=== PATIENT | male | born 1935 | race Caucasian/White ===

== ENCOUNTER → 2017-09-30 09:18 | Outpatient (CLI) | payer MEDICARE, OTHER, SELFPAY ==
[2017-09-30 10:55] LABS: AST(SGOT) 40 U/L (15-37); Alanine Aminotransfer ALT/SGPT 40 U/L (16-61); Albumin, Serum 4.1 g/dL (3.2-5.0); Alkaline Phosphatase 56 U/L (45-117); Bilirubin, Direct 0.25 mg/dL (0.00-0.30); Cholesterol 163 mg/dL (200); Globulin 3.5 g/dL (2.2-4.2); High Density Lipoprotein 49 mg/dL; Protein, Total 7.6 g/dL (6.4-8.2); Triglycerides 67 mg/dL; Very Low Density Lipoprotein 13 mg/dL (5-40)
== END ==
PROVIDERS: Family Provider Internal Medicine; PCP Internal Medicine; Visit Provider Internal Medicine Cardiovascular Disease
DX: E78.5 Hyperlipidemia, unspecified (principal); I10 Essential (primary) hypertension; I71.2 Thoracic aortic aneurysm, without rupture; I50.32 Chronic diastolic (congestive) heart failure
CPT/HCPCS: 36415; 80061; 80076

== ENCOUNTER → 2017-10-15 12:24 | Outpatient (CLI) | payer MEDICARE, OTHER, SELFPAY ==
--- NOTE | 2017-10-15 12:28 | ECHOD_ITS ---
Version 2 Reason For Study: AFIB-FLUTTER Procedure This was a 2D Doppler, Color Flow transthoracic echocardiogram. Exam performed in department. Left Ventricle Normal size and thickness. The estimated ejection fraction is 65 %. No regional wall motion abnormalities noted. Right Ventricle Normal size and thickness. Normal systolic function. Atria Normal left atrium. Normal right atrium. Normal atrial septum. Mitral Valve Mild diffuse mitral valve thickening. Mild (1+) mitral valve insufficiency. Tricuspid Valve Normal tricuspid valve. Mild (1+) tricuspid valve insufficiency. Right ventricular systolic pressure estimated to be 40 mmHg. Mild pulmonary hypertension. Aortic Valve Trisinus/trileaflet aortic valve. Mild diffuse aortic valve thickening. Trivial aortic valve insufficiency. Pulmonic Valve Normal pulmonic valve. Great Vessels Normal aortic root. Mild atherosclerosis of the aortic arch. Normal inferior vena cava. Inferior vena cava collapse with sniff. Pericardium/Pleural No pericardial effusion. Medication 22 gauge I.V. with prn adaptor inserted into right arm. Performed a rapid injection of agitated mix of 9 cc saline and 1cc air to assess for atrial septal defect. BUBBLE STUDY ATTEMPTED TWICE, IV BLEW BOTH TIMES. MMode/2D Measurements & Calculations LVIDd: 4.7 cm IVSd: 1.2 cm Ao root diam: 4.0 cm LVIDs: 2.9 cm LVPWd: 1.1 cm RVDd: 3.1 cm FS: 38.2 % LAV(MOD-bp): 63.2 ml EDV(MOD-sp4): 74.1 ml SV(MOD-sp4): 50.6 ml LAV(MOD-bp) Indexed: 31.9 ml/m2 ESV(MOD-sp4): 23.5 ml LAV(MOD-sp2): 83.6 ml EF(MOD-sp4): 68.3 % LAV(MOD-sp4): 41.9 ml LA A4 area: 16.6 cm2 RA A4 area: 13.5 cm2 Doppler Measurements & Calculations MV E max french: 82.3 cm/sec Ao V2 max: 102.0 cm/sec AI max french: 417.1 cm/sec Ao max P.2 mmHg AI max P.8 mmHg AI dec slope: 165.6 cm/sec2 AI P1/2t: 737.9 msec LV V1 max: 91.1 cm/sec PA V2 max: 71.0 cm/sec TR max french: 246.2 cm/sec LV V1 max P.3 mmHg TR max P.3 mmHg Interpretation Summary The estimated ejection fraction is 65 %. Mild (1+) mitral valve insufficiency. Mild (1+) tricuspid valve insufficiency. Right ventricular systolic pressure estimated to be 40 mmHg. Mild pulmonary hypertension. Trivial aortic valve insufficiency. Compared to echo report dated 09/22/2006, LV function has remained the same. Pt now has mild pulmonary HTN. Aortic insufficiency appears about the same. Pt appears to be in atrial fibrillation. Aortic root diameter has improved from 4.6 to 4.0 cm. Ordering Physician: Celso Lane Referring Physician: GISSELL MCFARLANE Performed By: Margoth Gorman RDCS
== END ==
PROVIDERS: Family Provider Internal Medicine; PCP Internal Medicine; Visit Provider Internal Medicine Cardiovascular Disease
DX: I50.32 Chronic diastolic (congestive) heart failure (principal); I48.1 Persistent atrial fibrillation; I71.2 Thoracic aortic aneurysm, without rupture; I10 Essential (primary) hypertension
CPT/HCPCS: 93306; A4216

== ENCOUNTER → 2018-10-13 10:06 | Outpatient (CLI) | payer MEDICARE, OTHER, SELFPAY ==
[2018-10-03 13:06] VITALS: BMI 25.1
[2018-10-13 11:03] LABS: AST(SGOT) 42 U/L (15-37); Alanine Aminotransfer ALT/SGPT 52 U/L (16-61); Alkaline Phosphatase 57 U/L (45-117); Bilirubin, Direct 0.19 mg/dL (0.00-0.30); Cholesterol 149 mg/dL (200); Globulin 3.2 g/dL (2.2-4.2); High Density Lipoprotein 41 mg/dL; Protein, Total 7.2 g/dL (6.4-8.2); Triglycerides 82 mg/dL; Very Low Density Lipoprotein 16 mg/dL (5-40)
== END ==
PROVIDERS: Family Provider Internal Medicine; PCP Internal Medicine; Referring Provider Internal Medicine Cardiovascular Disease; Visit Provider Internal Medicine Cardiovascular Disease
DX: E78.5 Hyperlipidemia, unspecified (principal)
CPT/HCPCS: 36415; 80061; 80076

== ENCOUNTER → 2018-10-25 12:31 | Outpatient (CLI) | payer MEDICARE, OTHER, SELFPAY ==
[2018-10-03 13:06] VITALS: BMI 25.1
--- NOTE | 2018-10-25 12:33 | ECHOD_ITS ---
Reason For Study: Other, Ao Root Diameter Procedure This was a 2D Doppler, Color Flow transthoracic echocardiogram. Exam performed in department. Left Ventricle Normal size and thickness. Mildly dilated left ventricle. The estimated ejection fraction is 65 %. Unable to assess diastolic dysfunction due to arrhythmia. No regional wall motion abnormalities noted. Right Ventricle Mildly dilated right ventricle. Normal systolic function. Atria The left atrium is mildly enlarged. The right atrium is moderately enlarged. Normal atrial septum. Mitral Valve The mitral valve is structurally normal. No prolapse or stenosis seen. Trivial mitral valve insufficiency. Tricuspid Valve Normal tricuspid valve. Trivial tricuspid valve insufficiency. Right ventricular systolic pressure estimated to be 43 mmHg. Aortic Valve Trisinus/trileaflet aortic valve. Mild focal aortic valve thickening. Mild (1+) aortic valve insufficiency. Pulmonic Valve Normal pulmonic valve. Great Vessels Mildly dilated aortic root. Normal arch. Normal inferior vena cava. Inferior vena cava collapse with sniff. Pericardium/Pleural No pericardial effusion. MMode/2D Measurements & Calculations LVIDd: 5.0 cm IVSd: 1.2 cm Ao root diam: 4.7 cm LVIDs: 3.4 cm LVPWd: 1.2 cm RVDd: 4.4 cm FS: 32.9 % LAV(MOD-bp): 65.9 ml LVAd ap4: 27.1 cm2 SV(MOD-sp4): 44.0 ml LAV(MOD-bp) Indexed: 33.8 ml/m2 EDV(MOD-sp4): 75.3 ml LAV(MOD-sp2): 60.7 ml EDV(sp4-el): 77.4 ml LAV(MOD-sp4): 59.5 ml LVAs ap4: 16.0 cm2 ESV(MOD-sp4): 31.3 ml ESV(sp4-el): 30.6 ml EF(MOD-sp4): 58.5 % EF(sp4-el): 60.4 % SV(sp4-el): 46.8 ml LA A4 area: 20.8 cm2 LA dimension(2D): 4.1 cm RA A4 area: 24.7 cm2 Doppler Measurements & Calculations MV E max french: 73.4 cm/sec Ao V2 max: 105.9 cm/sec AI max french: 432.1 cm/sec Ao max P.5 mmHg AI max P.7 mmHg Ao V2 mean: 71.5 cm/sec Ao mean P.3 mmHg AI dec slope: 189.1 cm/sec2 Ao V2 VTI: 21.7 cm AI P1/2t: 669.2 msec LV V1 max: 89.1 cm/sec PA V2 max: 64.3 cm/sec TR max french: 265.8 cm/sec LV V1 max P.2 mmHg TR max P.3 mmHg Interpretation Summary The estimated ejection fraction is 65 %. Unable to assess diastolic dysfunction due to arrhythmia. Trivial mitral valve insufficiency. Right ventricular systolic pressure estimated to be 43 mmHg. Mild (1+) aortic valve insufficiency. Mildly dilated aortic root. Pt appears to be in atrial fibrillation. Compared to echo report dated 10/15/2017, no appreciable changes noted. Ordering Physician: Celso Lane Referring Physician: Tani Gomez Performed By: Gail Maier RDCS, KENT
== END ==
PROVIDERS: Family Provider Internal Medicine; PCP Internal Medicine; Referring Provider Internal Medicine Cardiovascular Disease; Visit Provider Internal Medicine Cardiovascular Disease
DX: I48.1 Persistent atrial fibrillation (principal)
CPT/HCPCS: 93306

== ENCOUNTER → 2019-10-25 10:02 | Outpatient (CLI) | payer MEDICARE, OTHER, SELFPAY ==
[2019-10-19 09:45] VITALS: BMI 24.3
[2019-10-25 11:20] LABS: AST(SGOT) 21 U/L (15-37); Alanine Aminotransfer ALT/SGPT 35 U/L (16-61); Albumin, Serum 3.9 g/dL (3.2-5.0); Alkaline Phosphatase 55 U/L (45-117); Bilirubin, Direct 0.19 mg/dL (0.00-0.30); Cholesterol 160 mg/dL (200); Globulin 3.7 g/dL (2.2-4.2); High Density Lipoprotein 55 mg/dL; Protein, Total 7.6 g/dL (6.4-8.2); Triglycerides 74 mg/dL; Very Low Density Lipoprotein 15 mg/dL (5-40)
== END ==
PROVIDERS: PCP Internal Medicine; Referring Provider Internal Medicine Cardiovascular Disease; Visit Provider Internal Medicine Cardiovascular Disease
DX: E78.5 Hyperlipidemia, unspecified (principal); Z86.73 Personal history of transient ischemic attack (TIA), and cerebral infarction without residual deficits
CPT/HCPCS: 36415; 80061; 80076

== ENCOUNTER → 2019-11-03 12:41 | Outpatient (CLI) | payer MEDICARE, OTHER, SELFPAY ==
[2019-10-19 09:45] VITALS: BMI 24.3
--- NOTE | 2019-11-03 12:43 | ECHOD_ITS ---
Reason For Study: AORTIC ANEURYSM Procedure This was a 2D Doppler, Color Flow transthoracic echocardiogram. Exam performed in department. Left Ventricle Normal size and thickness. The estimated ejection fraction is 65 %. Unable to assess diastolic dysfunction due to arrhythmia. No regional wall motion abnormalities noted. Right Ventricle Moderately dilated right ventricle. Normal systolic function. Atria The left atrium is moderately enlarged. The right atrium is severely enlarged. Normal atrial septum. Mitral Valve The mitral valve is structurally normal. No prolapse or stenosis seen. Trivial mitral valve insufficiency. Tricuspid Valve Normal tricuspid valve. Trivial tricuspid valve insufficiency. Right ventricular systolic pressure estimated to be 41 mmHg. Mild pulmonary hypertension. Aortic Valve Trisinus/trileaflet aortic valve. Mild diffuse aortic valve thickening. Mild (1+) aortic valve insufficiency. Pulmonic Valve Normal pulmonic valve. Great Vessels Normal aortic root. Normal arch. Normal inferior vena cava. Inferior vena cava collapse with sniff. Pericardium/Pleural No pericardial effusion. MMode/2D Measurements & Calculations LVIDd: 5.5 cm IVSd: 1.1 cm Ao root diam: 4.6 cm LVIDs: 3.9 cm LVPWd: 1.1 cm RVDd: 4.0 cm FS: 29.0 % LAV(MOD-bp): 68.0 ml LA A4 area: 21.8 cm2 LA dimension(2D): 3.8 cm LAV(MOD-bp) Indexed: 34.9 ml/m2 LAV(MOD-sp2): 62.8 ml LAV(MOD-sp4): 62.7 ml RA A4 area: 24.8 cm2 Doppler Measurements & Calculations MV E max french: 85.7 cm/sec Ao V2 max: 123.7 cm/sec AI max french: 445.2 cm/sec Ao max P.1 mmHg AI max P.3 mmHg Ao V2 mean: 83.1 cm/sec AI dec slope: 269.3 cm/sec2 Ao mean P.1 mmHg AI P1/2t: 484.1 msec Ao V2 VTI: 24.3 cm LV V1 max: 86.8 cm/sec PA V2 max: 81.9 cm/sec TR max french: 255.7 cm/sec LV V1 max P.0 mmHg TR max P.2 mmHg LV V1 mean P.7 mmHg LV V1 mean: 61.2 cm/sec LV V1 VTI: 17.9 cm Interpretation Summary The estimated ejection fraction is 65 %. Unable to assess diastolic dysfunction due to arrhythmia. Moderately dilated right ventricle. The left atrium is moderately enlarged. The right atrium is severely enlarged. Trivial mitral valve insufficiency. Trivial tricuspid valve insufficiency. Right ventricular systolic pressure estimated to be 41 mmHg. Mild pulmonary hypertension. Mild (1+) aortic valve insufficiency. Compared to echo report dated 10/25/2018, no appreciable changes noted. Patient appears to be in atrial fibrillation. Ordering Physician: Celso Lane Referring Physician: Tani Gomez Performed By: Doris Rosenthal, JUAQUINCS, RVT
== END ==
PROVIDERS: PCP Internal Medicine; Referring Provider Internal Medicine Cardiovascular Disease; Visit Provider Internal Medicine Cardiovascular Disease
DX: Z86.73 Personal history of transient ischemic attack (TIA), and cerebral infarction without residual deficits (principal); Q25.43 Congenital aneurysm of aorta
CPT/HCPCS: 93306

== ENCOUNTER 2020-03-06 13:00 | Outpatient (RCR) | payer MEDICARE, OTHER, SELFPAY ==
[2019-10-19 09:45] VITALS: BMI 24.3
--- NOTE | 2020-02-07 13:59 | HP.PTEVAL ---
Patient's Visit Information BLAISE DEAL is a 84 year old M referred to Physical Therapy by JUNIOR Reno with a diagnosis of CHRONIC LEFT SHOULDER PAIN. Date of Evaluation: 02/07/20 Physical Therapist: Jerad De Leon, PT, Cert MDT, OCS - Visit Plan Frequency: 1-2x /Week Duration: 4 Weeks Plan: RTC WEAKNESS. PT INTERVENTIONS WITH HEP,POSTURAL EX'S,RTC/SCAPULAR STRENGTHENING,MODALTIES NEEDED - Subjective This 84 y/o male presents to physical therapy with left shoulder pain. Patient has h/o bilateral RTC repair. Patient reports shoulder pain for about 6 months ago,possibel from working out with weights while being in [place]. Patient takes teylonal for pain.Pateint reports pain is better but now is weak compared to right. Patient does have occassiaonal pain when sleeping on left side. Patient denies parathesia/tingling. Patient has diffriculty with OH activities with lifting due to weakness. Patient condtion affects ability with ADL's and housework tasks. Patient condition affects QOL.Patient had x-rays -. Seen orhopedic Dr as well. SOCAIL: . VOCATION:reitred - Objective POSTURE: mild foward posture ,rounded shoulders. PALAPTION: unremarkable. NEURO: intact. AROM: shoulder flexion 150 degrees,abd 150,ER 90 ,IR T11. MMT: infraspinatous 3_/5,subscapularis 4-/5,supraspinatous 3+/5,deltoid 3+/5 - Special Tests L Shoulder External Rotation Lag Test - RC Tear: Positive L Shoulder Supine Impingement Test - RC Tear: Positive L Shoulder Lift Off Test - Subscapular Tear: Negative L Shoulder Drop Sign - IS Test: Negative L Shoulder Empty Can - SS: Negative L Shoulder Belly Press - SupScap: Negative L Shoulder Neer - Impingement: Negative L Shoulder Rodriguez Yobani - Impingement: Negative L Shoulder Shrug Sign - OA/Adhesive Capsulitis: Negative - Goals Goal 1:: Patient to be I with HEP. Goal Time Frame: 2-4 Weeks Goal 2:: Patient decrease symtoms of pain with activity by 75% to improve function. Goal Time Frame: 2-4 Weeks Goal 3:: Patient to increase strength RTC and deltoid by 1/2 graded to improve function. Goal Time Frame: 2-4 Weeks Goal 4:: Patient to improve quick dash by 5 points > to improve QOL. Goal Time Frame: 2-4 Weeks - Rehabilitation Potential Physical Therapy Diagnosis: This patient has left shoulder RTC weakness especially infraspinatous and supraspinatous with mild pain fist impairs activies OH ,thus benifit from skilled PT. Patient does have h/o RTC surgery. Rehabilitation Potential: Good - Anticipated Interventions Patient/Client Instruction: Educate patient on: Condition, Plan of Care For the Purpose of:: To decrease pain, To increase ROM, To improve muscle performance and motor function, To improve ability to perform ADL's, To increase tolerance to activity/condition/position, To improve ability of physical actions for home/community/work/leisure, To improve health of tissue, To decrease soft tissue restriction, To increase flexibility/ROM, To assume or resume ADL's, To reduce risk of recurrence, To improve ability to perform tasks related to life management Therapeutic Exercise to Include: Strength training, Postural training, Flexibilty training, Active ROM Comment: RTC/SCAPULAR For the Purpose of:: To decrease pain, To increase ROM, To improve muscle performance and motor function, To improve ability to perform ADL's, To increase tolerance to activity/condition/position, To improve performance and independence with ADL's, To improve ability of physical actions for home/community/work/leisure, To improve health of tissue, To decrease soft tissue restriction, To improve ability to perform tasks related to life management TENS: Yes IF ES: Yes Cryotherapy (ice pack, ice massage): Yes Thermo therapy (hot pack): Yes Ultrasound (thermal/non thermal): Yes For the Purpose of:: To decrease pain, To increase ROM, To improve health of tissue, To decrease soft tissue restriction Thank you for the opportunity to evaluate your patient. For Medicare and Medicare HMO plans, please review the plan of care and approve it. It will need to be FAXED BACK to us at [phone] for Medicare purposes. For Medicare only, by signing this I certify the plan of care. Please let me know if there are questions or concerns regarding this plan of care. Physician Signature: Date:
--- NOTE | 2020-05-02 10:09 | HP.PT.NRP ---
BLAISE DEAL was seen in my office for initial evaluation on 02/07/20. The following Plan of Care was established for this patient: Initial Frequency: 1-2x /Week Initial Duration: 4 Weeks Patient/Client Instruction: Educate patient on: Condition, Plan of Care For the Purpose of:: To decrease pain, To increase ROM, To improve muscle performance and motor function, To improve ability to perform ADL's, To increase tolerance to activity/condition/position, To improve ability of physical actions for home/community/work/leisure, To improve health of tissue, To decrease soft tissue restriction, To increase flexibility/ROM, To assume or resume ADL's, To reduce risk of recurrence, To improve ability to perform tasks related to life management Therapeutic Exercise to Include: Strength training, Postural training, Flexibilty training, Active ROM For the Purpose of:: To decrease pain, To increase ROM, To improve muscle performance and motor function, To improve ability to perform ADL's, To increase tolerance to activity/condition/position, To improve performance and independence with ADL's, To improve ability of physical actions for home/community/work/leisure, To improve health of tissue, To decrease soft tissue restriction, To improve ability to perform tasks related to life management TENS: Yes IF ES: Yes Cryotherapy (ice pack, ice massage): Yes Thermo therapy (hot pack): Yes Ultrasound (thermal/non thermal): Yes For the Purpose of:: To decrease pain, To increase ROM, To improve health of tissue, To decrease soft tissue restriction This patient was last seen in our office . Pertinent comments regarding their Physical therapy will appear below: Patient was seen for PT for HEP for ROM/strengthening ,appears to have RTC tear with weakness. At this point I will be discontinuing this patient from physical therapy. I would be happy to see this patient again in the future if found appropriate by the physician. Thank you! Jerad De Leon, PT, Cert MDT, OCS
== END 2020-03-06 19:00 | disposition home or self-care (01) ==
LOC: PT 13:00
PROVIDERS: PCP Internal Medicine; Referring Provider Nurse Practitioner; Visit Provider Nurse Practitioner
DX: M25.512 Pain in left shoulder (principal); G89.29 Other chronic pain
CPT/HCPCS: 97110; 97162

== ENCOUNTER → 2020-03-14 09:45 | Outpatient (CLI) | payer MEDICARE, OTHER, SELFPAY ==
[2020-02-29 15:26] VITALS: BMI 23.2
--- NOTE | 2020-03-15 10:22 | PFT ---
INTRODUCTION: The patient is an 84-year-old male that presents for pulmonary function studies secondary to a diagnosis of shortness of breath. Respiratory therapy reports good patient effort. Bronchodilators were used during testing. INTERPRETATION: Forced expiration spirometry demonstrates no evidence of a large airways obstructive ventilatory defect. There was no significant response to aerosolized bronchodilators, based upon strict ATS criteria. Spirograms are of good quality and plateau normally. Body plethysmography was performed and reveals lung volumes to be within normal limits. Diffusing capacity by single breath CO is also within normal limits. IMPRESSION: Grossly normal pulmonary function studies.
== END ==
PROVIDERS: PCP Internal Medicine; Referring Provider Nurse Practitioner Family; Visit Provider Nurse Practitioner Family
DX: R06.02 Shortness of breath (principal)
CPT/HCPCS: 94060; 94726; 94729

== ENCOUNTER → 2020-10-25 12:29 | Outpatient (CLI) | payer MEDICARE, OTHER, SELFPAY ==
[2020-10-16 10:28] VITALS: BMI 23.5
[2020-10-25 12:49] LABS: International Normalized Ratio 1.2; Prothrombin Time (Protime)PT. 14.6 SECONDS (11.7-14.9)
== END ==
PROVIDERS: PCP Internal Medicine; Referring Provider Internal Medicine; Visit Provider Internal Medicine
DX: I48.20 Chronic atrial fibrillation, unspecified (principal)
CPT/HCPCS: 85610

== ENCOUNTER → 2020-11-06 11:11 | Outpatient (CLI) | payer MEDICARE, OTHER, SELFPAY ==
[2020-10-16 10:28] VITALS: BMI 23.5
--- NOTE | 2020-11-06 11:21 | VDLE_ITS ---
Reason For Study: Pain RIGHT LEFT GSV is normal. CFV is compressible, spontaneous, phasic, CFV is compressible, spontaneous, phasic, competent, and demonstrates normal competent and demonstrates normal augmentation. augmentation. FV is compressible, spontaneous, phasic, competent and demonstrates normal augmentation. POP V is compressible, spontaneous, phasic, competent and demonstrates normal augmentation. T/P Trunk is compressible. PTV is compressible. RT PerV is compressible. Procedure This is a venous duplex using B-mode, color flow and spectral Doppler. Exam performed in department. A preliminary report was called and/or faxed to Prasad. VL/Venous Duplex US, Unilateral Interpretation Summary Deep veins of the right lower extremity are patent and compressible segmentally . There is no evidence of right lower extremity deep vein thrombosis. Valvular competence fortunato ears intact within the proximal deep venous system on the right . The right great saphenous vein a ppears patent and compressible segmentally. Ordering Physician: Sunday Parham Referring Physician: Tani Gomez M.D. Performed By: Celia Goddard RVT
[2020-11-06 12:55] LABS: Albumin, Serum 3.8 g/dL (3.2-5.0)
== END ==
PROVIDERS: PCP Internal Medicine; Referring Provider Physician Assistant Surgical; Visit Provider Physician Assistant Surgical
DX: M79.661 Pain in right lower leg (principal)
CPT/HCPCS: 36415; 82040; 93971

== ENCOUNTER → 2020-12-19 10:39 | Outpatient (CLI) | payer MEDICARE, OTHER, SELFPAY ==
[2020-12-16 14:33] VITALS: BMI 22.5
--- NOTE | 2020-12-19 10:42 | ECHOD_ITS ---
Reason For Study: AORTIC ROOT DILATATION Procedure This was a 2D Doppler, Color Flow transthoracic echocardiogram. The exam was of adequate technical quality. Exam performed in department. Left Ventricle Normal LV size. Left ventricular systolic function is normal. The estimated ejection fraction is 60 %. Unable to assess diastolic dysfunction. No regional wall motion abnormalities noted. Right Ventricle Normal RV size. Normal systolic function. Atria The left atrium is mildly enlarged. The right atrium is mildly enlarged. No doppler evidence for ASD. Mitral Valve There is mild mitral annular calcification. Mild diffuse mitral valve thickening. The mitral valve chordae are thickened and/or calcified. The mitral papillary muscle appears thickened and/or calcified. Mild-Moderate (1-2+) mitral valve insufficiency. Tricuspid Valve Normal tricuspid valve. Mild tricuspid valve insufficiency. Right ventricular systolic pressure estimated to be 33 mmHg. Aortic Valve Trisinus/trileaflet aortic valve. Moderate diffuse aortic valve thickening. Mild focal aortic valve calcification. Moderate (2+) aortic valve insufficiency. Pulmonic Valve The pulmonic valve is not well visualized. Great Vessels Moderately dilated aortic root. Pericardium/Pleural No pericardial effusion. MMode/2D Measurements & Calculations LVIDd: 5.3 cm IVSd: 1.1 cm Ao root diam: 4.6 cm LVIDs: 3.9 cm LVPWd: 1.1 cm RVDd: 3.7 cm FS: 25.8 % LAV(MOD-bp): 87.1 ml LA A4 area: 24.3 cm2 LA dimension(2D): 4.4 cm LAV(MOD-bp) Indexed: 46.3 ml/m2 LAV(MOD-sp2): 86.7 ml LAV(MOD-sp4): 86.2 ml RA A4 area: 25.7 cm2 Doppler Measurements & Calculations MV E max french: 75.1 cm/sec Ao V2 max: 123.8 cm/sec AI max french: 468.9 cm/sec Ao max P.1 mmHg AI max P.1 mmHg Ao V2 mean: 88.5 cm/sec AI dec slope: 300.7 cm/sec2 Ao mean P.3 mmHg AI P1/2t: 456.7 msec Ao V2 VTI: 24.4 cm LV V1 max: 93.8 cm/sec PA V2 max: 77.5 cm/sec TR max french: 272.8 cm/sec LV V1 max P.5 mmHg TR max P.8 mmHg LV V1 mean P.0 mmHg LV V1 mean: 66.8 cm/sec LV V1 VTI: 18.6 cm ECHO/Echo Complete Interpretation Summary Left ventricular systolic function is normal. The estimated ejection fraction is 60 %. The left atrium is mildly enlarged. The right atrium is mildly enlarged. There is mild mitral annular calcification. Mild diffuse mitral valve thickening. The mitral valve chordae are thickened and/or calcified. The mitral papillary muscle appears thickened and/or calcified. Mild-Moderate (1-2+) mitral valve insufficiency. Mild tricuspid valve insufficiency. Moderate diffuse aortic valve thickening. Mild focal aortic valve calcification. Moderate (2+) aortic valve insufficiency. Moderately dilated aortic root. Right ventricular systolic pressure estimated to be 33 mmHg. Unable to assess diastolic dysfunction. Ordering Physician: Luan Maier Referring Physician: Tani Gomez Performed By: Doris Rosenthal RDCS, RVT
== END ==
PROVIDERS: PCP Internal Medicine; Referring Provider Nurse Practitioner Family; Visit Provider Nurse Practitioner Family
DX: I71.2 Thoracic aortic aneurysm, without rupture (principal)
CPT/HCPCS: 93306

== ENCOUNTER → 2021-01-06 09:25 | Outpatient (CLI) | payer MEDICARE, OTHER, SELFPAY ==
[2021-01-01 15:08] VITALS: BMI 22.1
[2021-01-06 10:57] LABS: AST(SGOT) 22 U/L (15-37); Alanine Aminotransfer ALT/SGPT 31 U/L (16-61); Albumin, Serum 3.9 g/dL (3.2-5.0); Alkaline Phosphatase 75 U/L (45-117); Bilirubin, Direct 0.17 mg/dL (0.00-0.30); Cholesterol 162 mg/dL (200); Globulin 3.3 g/dL (2.2-4.2); High Density Lipoprotein 49 mg/dL; Protein, Total 7.2 g/dL (6.4-8.2); Triglycerides 74 mg/dL; Very Low Density Lipoprotein 15 mg/dL (5-40)
== END ==
PROVIDERS: PCP Internal Medicine; Visit Provider Internal Medicine Cardiovascular Disease
DX: E78.00 Pure hypercholesterolemia, unspecified (principal)
CPT/HCPCS: 36415; 80061; 80076

== ENCOUNTER 2021-01-30 12:30 | Outpatient (RCR) | payer MEDICARE, OTHER, SELFPAY ==
[2020-02-29 15:26] VITALS: BMI 23.2
[2020-10-16 10:28] VITALS: BMI 23.5
--- NOTE | 2020-10-25 13:23 | HP.PTEVAL_ITS ---
Patient's Visit Information BLAISE DEAL is a 84 year old M referred to Physical Therapy by Yossi Parham PA-C with a diagnosis of R Total Hip Arthroplasty. Date of Evaluation: 10/25/20 Physical Therapist: Andres Chaudhary DPT - Visit Plan Frequency: 2x /Week Duration: 4-6 Weeks Plan: Hip, knee, and core strengthening. Increase hip ROM with PROM and joint mobs. Use modalities for pain if needed. Progress walking with a standard walker to a cane when appropriate. - Subjective The pt. is here today s/p a R SUSAN performed on October [address] Parks. The pt. states that he was released from the hospital on Wednesday and has been doing well since then. He reports that about 6-7 weeks ago his hip started hurting hip while playing golf and is why he had the hip replacement. He is using a standard walker and has four steps to get into his house with a rail on each side, which he states that makes it easier to get in/out of the house. The pts. pain is a ranked as a 7/10 when walking and doing activities, but does not have much pain while he is sitting. He is able to sleep in his bed on his back and does not have trouble staying asleep. For pain relief, he has been taking Tylenol occasionally and icing his hip every half hour to an hour each day. The pt. was an active retired individual who used to golf 4x a week, ride his [employer], to which he cannot do now due to his surgery. The pt. denies any N/T today. He noted that he had a stroke 15 years ago, which affected his right side. - Pain Right Hip Pain Intensity (Out of 10): 7 Pain Intensity Range: Unrated - Objective Posture: Flexed position while ambulating with a standard walker, minimal forward head, but all else WNL. ROM: Hip flexion R 45deg, L 120deg, extension not tested today due to surgery precautions. MMT: Hip flexion L 5/5, R 2/5 with pain, Knee extension L 5/5, R 4/5, knee flexion L 5/5, R 3+/5, dorsiflexion/inversion L 5/5, R 3+/5, Pt. could not perform a SLR in supine due to pain in his hip, pt. was moderately limited in hooklying hip abduction and was better with hooklying hip adduction. Palpation: Very TTP near R greater trochanter and along the lateral aspect of his hip joint and proximal thigh. Gait: decreased stance time on the R, decreased hip flexion in swing phase, decreased knee flexion in weight acceptance, decreased yesica overall and ambulating with a standard walker. TUsec. WOMAC: 73/96 - Goals Goal 1:: LTG: The pt. will be compliant and independent with his HEP. Goal Time Frame: 2-4 Weeks Goal 2:: LTG: The pt. will increase his R hip flexion to 120deg, so he can ascend/descend stair without complications. (Initial eval: hip flexion = 45deg) Goal Time Frame: 4-6 Weeks Goal 3:: LTG: The pt. will increase his hip and knee strength by 1-2 muscle grades. (Initial eval: Hip flexion R 2/5, Knee extension R 4/5, knee flexion R 3+/5, dorsiflexion/inversion R 3+/5) Goal Time Frame: 4-6 Weeks Goal 4:: LTG: The pt. will decrease his TUG time from 41seconds to 15seconds, so he can ambulate with a more efficient gait pattern. Goal Time Frame: 4-6 Weeks Goal 5:: LTG: The pt. will be able to negotiate 1 flight of stairs using only 1 HR. Goal Time Frame: 4-6 Weeks Goal 6:: LTG: Pt. to complete 6 MWT with at least 1000' without AD without increase in hip symptoms. Goal Time Frame: 4-6 Weeks - Rehabilitation Potential Physical Therapy Diagnosis: The pt. is an 84 yo male who presents today s/p a R SUSAN. The pts. surgery was on Wednesday and was done by Dr. Parks. The pt. presents to the clinic ambulating with a standard walker and exhibits pain in the R hip, decreased hip and knee strength, and a decrease in hip mobility. The pt. is needing PT to address these impairments and limitations, so he can return to golfing and performing all ADL's at home without pain. Rehabilitation Potential: Good - Anticipated Interventions Patient/Client Instruction: Educate patient on: Condition, Plan of Care For the Purpose of:: To decrease pain, To decrease swelling/inflammation, To increase ROM, To improve muscle performance and motor function, To increase tolerance to activity/condition/position, To improve performance and independence with ADL's, To improve ability of physical actions for home/community/work/leisure, To increase flexibility/ROM, To improve endurance, To improve balance, To improve tolerance to ADL's Therapeutic Exercise to Include: Strength training, Endurance training, Balance training, Body mechanics, Flexibilty training, Passive ROM, Active ROM For the Purpose of:: To decrease pain, To increase ROM, To improve muscle performance and motor function, To improve ability to perform ADL's, To increase tolerance to activity/condition/position, To improve performance and independence with ADL's, To improve ability of physical actions for home/community/work/leisure, To increase flexibility/ROM, To improve endurance, To improve balance, To improve safety with gait Manual Therapy Techniques to Include: Mobilization, Passive ROM, Soft tissue mobilization For the Purpose of:: To decrease pain, To increase ROM, To improve nutrient delivery to tissue, To improve muscle performance and motor function, To increase tolerance to activity/condition/position, To improve performance and independence with ADL's, To increase flexibility/ROM, To improve tolerance to ADL's Functional electric stimulation: Yes TENS: Yes Cryotherapy (ice pack, ice massage): Yes Thermo therapy (hot pack): Yes Ultrasound (thermal/non thermal): Yes For the Purpose of:: To decrease pain, To increase ROM, To improve muscle performance and motor function, To increase tolerance to activity/condition/po sition Thank you for the opportunity to evaluate your patient. For Medicare and Medicare HMO plans, please review the plan of care and approve it. It will need to be FAXED BACK to us at [phone] for Medicare purposes. For Medicare only, by signing this I certify the plan of care. Please let me know if there are questions or concerns regarding this plan of care. Physician Signature: Date:
--- NOTE | 2020-11-20 16:39 | HP.PTREVAL_ITS ---
Yossi Parham PA-C, It has been my pleasure to treat BLAISE DEAL over the last 8 visits for R Total Hip Arthroplasty. Please see the progress note below for an update on the physical therapy plan of care! Subjective: Pt. arrives today with single point cane. He reports overall doing well, but is having some pain with getting up after sustained sitting and still feels weak. Objective/Function: ROM: R hip- flexion 90deg, abd 30deg increase NW, ext 0deg neutral. MMT: RLE- ankle 5/5 throughout; knee: ext 4/5, flexion 4/5; hip- flexion 4/5, abd 3/5, ext 4/5. GAIT: Pt. ambulated with single point cane today. He reports not using AD in home. He does have increased R hip lateral translation during R stance phase, he has decent step length bilaterally. Pt. does have a methodical gait pattern as well. STAIRS: Pt. is able to complete with reciprocal pattern with 2 HR with marked weakness in R hip during stance phase. 6 MWT: 315ft. with cane. TU.9sec. Plan Plan: Pt. continues to have marked weakness in his R hip, glute med, glute max, quad. Cont. to work on gait control/stability with cane to increase tolerance and safety. Goals Goal 1:: LTG: The pt. will be compliant and independent with his HEP. Goal Time Frame: 2-4 Weeks Goal Progress: Progressing Goal 2:: LTG: The pt. will increase his R hip flexion to 120deg, so he can ascend/descend stair without complications. (Initial eval: hip flexion = 45deg) Goal Time Frame: 4-6 Weeks Goal Progress: Progressing Goal 3:: LTG: The pt. will increase his hip and knee strength by 1-2 muscle grades. (Initial eval: Hip flexion R 2/5, Knee extension R 4/5, knee flexion R 3+/5, dorsiflexion/inversion R 3+/5) Goal Time Frame: 4-6 Weeks Goal Progress: Progressing Goal 4:: LTG: The pt. will decrease his TUG time from 41seconds to 15seconds, so he can ambulate with a more efficient gait pattern. Goal Time Frame: 4-6 Weeks Goal Progress: Progressing Goal 5:: LTG: The pt. will be able to negotiate 1 flight of stairs using only 1 HR. Goal Time Frame: 4-6 Weeks Goal Progress: Progressing Goal 6:: LTG: Pt. to complete 6 MWT with at least 1000' without AD without increase in hip symptoms. Goal Time Frame: 4-6 Weeks Goal Progress: Progressing Anticipated Interventions Patient/Client Instruction: Educate patient on: Condition, Plan of Care For the Purpose of:: To decrease pain, To decrease swelling/inflammation, To increase ROM, To improve muscle performance and motor function, To increase tolerance to activity/condition/position, To improve performance and independence with ADL's, To improve ability of physical actions for home/community/work/leisure, To increase flexibility/ROM, To improve endurance, To improve balance, To improve tolerance to ADL's Therapeutic Exercise to Include: Strength training, Endurance training, Balance training, Body mechanics, Flexibilty training, Passive ROM, Active ROM For the Purpose of:: To decrease pain, To increase ROM, To improve muscle performance and motor function, To improve ability to perform ADL's, To increase tolerance to activity/condition/position, To improve performance and independ ence with ADL's, To improve ability of physical actions for home/community/work/leisure, To increase flexibility/ROM, To improve endurance, To improve balance, To improve safety with gait Manual Therapy Techniques to Include: Mobilization, Passive ROM, Soft tissue mobilization For the Purpose of:: To decrease pain, To increase ROM, To improve nutrient delivery to tissue, To improve muscle performance and motor function, To increase tolerance to activity/condition/position, To improve performance and independence with ADL's, To increase flexibility/ROM, To improve tolerance to ADL's Functional electric stimulation: Yes TENS: Yes Cryotherapy (ice pack, ice massage): Yes Thermo therapy (hot pack): Yes Ultrasound (thermal/non thermal): Yes For the Purpose of:: To decrease pain, To increase ROM, To improve muscle performance and motor function, To increase tolerance to activity/condition/position Please do not hesitate to contact me at [phone] by phone or if you have questions or concerns regarding this new plan of care! Sincerely, Andres Chaudhary DPT
--- NOTE | 2020-12-09 10:53 | HP.PTREVAL ---
Yossi Parham PA-C, It has been my pleasure to treat BLAISE DEAL over the last 11 visits for R Total Hip Arthroplasty. Please see the progress note below for an update on the physical therapy plan of care! Subjective: Pt. arrives today with reports of continued pain at R hip that does radiate down his leg at times. Pt. arrives walking without AD, he does have marked R leg weakness with gait. pt. Objective/Function: Pt. is doing well. He is limited with WBing positions secondary to pain in his R hip that reports shooting to his foot at times. Pt. has no pain in sitting or lying. he has decent ROM, but has increased pain with active hip flexion, abduction motions. due to pain in WBing, but gait pattern is analgic. HE is still very weak with abd and hip extension motions. I would recommend that he continue to work on strengthening and gait progression. I talked to him about use of cane, but patient does not want to use. TUsec with no AD. STAIRS: reciprocal pattern with 2 HR. Plan Plan: Pt. to see physician then re assess need for further PT. Goals Goal 1:: LTG: The pt. will be compliant and independent with his HEP. Goal Time Frame: 2-4 Weeks Goal Progress: Progressing Goal 2:: LTG: The pt. will increase his R hip flexion to 120deg, so he can ascend/descend stair without complications. (Initial eval: hip flexion = 45deg) Goal Time Frame: 4-6 Weeks Goal Progress: Progressing Goal 3:: LTG: The pt. will increase his hip and knee strength by 1-2 muscle grades. (RE check 12/04: Hip flexion R 4-/5, Knee extension R 4/5, knee flexion R 4/5, dorsiflexion/inversion R 4+/5, R hip abd 4-/5, ext 4/5.) Goal Time Frame: 4-6 Weeks Goal Progress: Progressing Goal 4:: LTG: The pt. will decrease his TUG time from 41seconds to 15seconds, so he can ambulate with a more efficient gait pattern. Goal Time Frame: 4-6 Weeks Goal Progress: Progressing Goal 5:: LTG: The pt. will be able to negotiate 1 flight of stairs using only 1 HR. Goal Time Frame: 4-6 Weeks Goal Progress: Progressing Goal 6:: LTG: Pt. to complete 6 MWT with at least 1000' without AD without increase in hip symptoms. Goal Time Frame: 4-6 Weeks Goal Progress: Progressing Anticipated Interventions Patient/Client Instruction: Educate patient on: Condition, Plan of Care For the Purpose of:: To decrease pain, To decrease swelling/inflammation, To increase ROM, To improve muscle performance and motor function, To increase tolerance to activity/condition/position, To improve performance and independence with ADL's, To improve ability of physical actions for home/community/work/leisure, To increase flexibility/ROM, To improve endurance, To improve balance, To improve tolerance to ADL's Therapeutic Exercise to Include: Strength training, Endurance training, Balance training, Body mechanics, Flexibilty training, Passive ROM, Active ROM For the Purpose of:: To decrease pain, To increase ROM, To improve muscle performance and motor function, To improve ability to perform ADL's, To increase tolerance to activity/condition/position, To improve performance and independence with ADL's, To improve ability of physical actions for home/community/work/leisure, To increase flexibility/ROM, To improve endurance, To improve balance, To improve safety with gait Manual Therapy Techniques to Include: Mobilization, Passive ROM, Soft tissue mobilization For the Purpose of:: To decrease pain, To increase ROM, To improve nutrient delivery to tissue, To improve muscle performance and motor function, To increase tolerance to activity/condition/position, To improve performance and independence with ADL's, To increase flexibility/ROM, To improve tolerance to ADL's Functional electric stimulation: Yes TENS: Yes Cryotherapy (ice pack, ice massage): Yes Thermo therapy (hot pack): Yes Ultrasound (thermal/non thermal): Yes For the Purpose of:: To decrease pain, To increase ROM, To improve muscle performance and motor function, To increase tolerance to activity/condition/position Please do not hesitate to contact me at [phone] by phone or if you have questions or concerns regarding this new plan of care! Sincerely, Andres Chaudhary DPT
--- NOTE | 2020-12-30 11:42 | HP.PTREVAL ---
Yossi Parham PA-C, It has been my pleasure to treat BLAISE DEAL over the last 17 visits for R Total Hip Arthroplasty. Please see the progress note below for an update on the physical therapy plan of care! Subjective: Pt. reports continued intermittent pain at his R hip with initial standing and if I move wrong. He reports increased walking at home, but still has periods of increased pain. Objective/Function: Pt. is walking better, but is still having pain in his R hip with walking. He continues to have marked R hip abd and ER weakness. It is hard to determine if it was from his previous CVA or current hip weakness. Pt. reports being unsure. 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 R hip abd 3-/5 with increased pain and hip ER 3+/5 increase in symptoms. He is walking better with out AD, but still has marked visible R hip lateral weakness during R stance phase. Pt. to add in clamshells and hip abd at home without resistance. He still has pain with both movements. Plan Plan: I want him to work on hip ER and ABD at home to increase stability and safety with gait. Balance/Gait/Functional tests - Balance/Special Test Scores Lower Extremity Functional Score: 62 Goals Goal 1:: LTG: The pt. will be compliant and independent with his HEP. Goal Time Frame: 2-4 Weeks Goal Progress: Progressing Goal 2:: LTG: The pt. will increase his R hip flexion to 120deg, so he can ascend/descend stair without complications. (Initial eval: hip flexion = 45deg) Goal Time Frame: 4-6 Weeks Goal Progress: Progressing Goal 3:: LTG: The pt. will increase his hip and knee strength by 1-2 muscle grades. (RE check 12/04: Hip flexion R 4-/5, Knee extension R 4/5, knee flexion R 4/5, dorsiflexion/inversion R 4+/5, R hip abd 4-/5, ext 4/5.) Goal Time Frame: 4-6 Weeks Goal Progress: Progressing Goal 4:: LTG: The pt. will decrease his TUG time from 41seconds to 15seconds, so he can ambulate with a more efficient gait pattern. Goal Time Frame: 4-6 Weeks Goal Progress: Progressing Goal 5:: LTG: The pt. will be able to negotiate 1 flight of stairs using only 1 HR. Goal Time Frame: 4-6 Weeks Goal Progress: Progressing Goal 6:: LTG: Pt. to complete 6 MWT with at least 1000' without AD without increase in hip symptoms. Goal Time Frame: 4-6 Weeks Goal Progress: Progressing Anticipated Interventions Patient/Client Instruction: Educate patient on: Condition, Plan of Care For the Purpose of:: To decrease pain, To decrease swelling/inflammation, To increase ROM, To improve muscle performance and motor function, To increase tolerance to activity/condition/position, To improve performance and independence with ADL's, To improve ability of physical actions for home/community/work/leisure, To increase flexibility/ROM, To improve endurance, To improve balance, To improve tolerance to ADL's Therapeutic Exercise to Include: Strength training, Endurance training, Balance training, Body mechanics, Flexibilty training, Passive ROM, Active ROM For the Purpose of:: To decrease pain, To increase ROM, To improve muscle performance and motor function, To improve ability to perform ADL's, To increase tolerance to activity/condition/position, To improve performance and independence with ADL's, To improve ability of physical actions for home/community/work/leisure, To increase flexibility/ROM, To improve endurance, To improve balance, To improve safety with gait Manual Therapy Techniques to Include: Mobilization, Passive ROM, Soft tissue mobilization For the Purpose of:: To decrease pain, To increase ROM, To improve nutrient delivery to tissue, To improve muscle performance and motor function, To increase tolerance to activity/condition/position, To improve performance and independence with ADL's, To increase flexibility/ROM, To improve tolerance to ADL's Functional electric stimulation: Yes TENS: Yes Cryotherapy (ice pack, ice massage): Yes Thermo therapy (hot pack): Yes Ultrasound (thermal/non thermal): Yes For the Purpose of:: To decrease pain, To increase ROM, To improve muscle performance and motor function, To increase tolerance to activity/condition/position Please do not hesitate to contact me at [phone] by phone or if you have questions or concerns regarding this new plan of care! Sincerely, Andres Chaudhary DPT
--- NOTE | 2021-04-23 12:31 | HP.PT.NRP ---
BLAISE DEAL was seen in my office for initial evaluation on 10/25/20. The following Plan of Care was established for this patient: Initial Frequency: 2x /Week Initial Duration: 4-6 Weeks Patient/Client Instruction: Educate patient on: Condition, Plan of Care For the Purpose of:: To decrease pain, To decrease swelling/inflammation, To increase ROM, To improve muscle performance and motor function, To increase tolerance to activity/condition/position, To improve performance and independence with ADL's, To improve ability of physical actions for home/community/work/leisure, To increase flexibility/ROM, To improve endurance, To improve balance, To improve tolerance to ADL's Therapeutic Exercise to Include: Strength training, Endurance training, Balance training, Body mechanics, Flexibilty training, Passive ROM, Active ROM For the Purpose of:: To decrease pain, To increase ROM, To improve muscle performance and motor function, To improve ability to perform ADL's, To increase tolerance to activity/condition/position, To improve performance and independence with ADL's, To improve ability of physical actions for home/community/work/leisure, To increase flexibility/ROM, To improve endurance, To improve balance, To improve safety with gait Manual Therapy Techniques to Include: Mobilization, Passive ROM, Soft tissue mobilization For the Purpose of:: To decrease pain, To increase ROM, To improve nutrient delivery to tissue, To improve muscle performance and motor function, To increase tolerance to activity/condition/position, To improve performance and independence with ADL's, To increase flexibility/ROM, To improve tolerance to ADL's Functional electric stimulation: Yes TENS: Yes Cryotherapy (ice pack, ice massage): Yes Thermo therapy (hot pack): Yes Ultrasound (thermal/non thermal): Yes For the Purpose of:: To decrease pain, To increase ROM, To improve muscle performance and motor function, To increase tolerance to activity/condition/position This patient was last seen in our office 01/30/21. Pertinent comments regarding their Physical therapy will appear below: Pt. was seen for his SUSAN. Pt. was still having some difficulty with pain with walking. He has marked weakness with hip abd and ER, but is also his effected CVA side. Pt. has not been seen in several months and will be DC from PT at this point in time. At this point I will be discontinuing this patient from physical therapy. I would be happy to see this patient again in the future if found appropriate by the physician. Thank you! Andres Chaudhary, JANESSAT Balance/Gait/Functional tests - Balance/Special Test Scores Lower Extremity Functional Score: 62
== END 2021-01-30 19:00 | disposition home or self-care (01) ==
LOC: PT 12:30
PROVIDERS: PCP Internal Medicine; Referring Provider Physician Assistant Surgical; Visit Provider Physician Assistant Surgical
DX: Z47.1 Aftercare following joint replacement surgery (principal); Z96.641 Presence of right artificial hip joint
CPT/HCPCS: 97110; 97161; 97164

== ENCOUNTER → 2021-10-17 | Outpatient (CLI) | payer MEDICARE, OTHER, SELFPAY ==
[2021-10-17 12:37] LABS: International Normalized Ratio 2.1; Prothrombin Time (Protime)PT. 23.6 SECONDS (11.7-14.9)
== END | disposition home or self-care (01) ==
LOC: LABSPEC 12:14
PROVIDERS: PCP Internal Medicine; Referring Provider Internal Medicine; Visit Provider Internal Medicine
DX: I48.20 Chronic atrial fibrillation, unspecified (principal)
CPT/HCPCS: 85610

== ENCOUNTER → 2021-12-29 | Outpatient (CLI) | payer MEDICARE, OTHER, SELFPAY ==
--- NOTE | 2021-12-29 12:45 | ECHOD_ITS ---
Reason For Study: Thoracic Ao Aneurysm Procedure This was a 2D Doppler, Color Flow transthoracic echocardiogram. The exam was of adequate technical quality. Exam performed in department. Left Ventricle Normal LV size. Left ventricular systolic function is normal. The estimated ejection fraction is 55 %. Diastolic function is indeterminate. No regional wall motion abnormalities noted. Right Ventricle Normal RV size. Normal systolic function. Atria The left atrium is mildly enlarged. The right atrium is mildly enlarged. No doppler evidence for ASD. Mitral Valve There is mild mitral annular calcification. Mild focal mitral valve calcification of the anterior leaflet. The mitral papillary muscle appears thickened and/or calcified. Mild-Moderate (1-2+) mitral valve insufficiency. Tricuspid Valve Normal tricuspid valve. Trivial tricuspid valve insufficiency. Right ventricular systolic pressure estimated to be 28 mmHg. Aortic Valve Trisinus/trileaflet aortic valve. Mild diffuse aortic valve thickening. Mild focal aortic valve calcification. Moderate (2+) aortic valve insufficiency. Pulmonic Valve The pulmonic valve is not well visualized. Great Vessels Moderately dilated aortic root. Pericardium/Pleural No pericardial effusion. MMode/2D Measurements & Calculations LVIDd: 5.1 cm IVSd: 1.3 cm Ao root diam: 4.7 cm LVIDs: 3.7 cm LVPWd: 1.2 cm RVDd: 4.2 cm FS: 27.7 % LAV(MOD-bp): 65.7 ml LVAd ap4: 29.7 cm2 SV(MOD-sp4): 53.5 ml LAV(MOD-bp) Indexed: 34.6 ml/m2 LVLd ap4: 8.1 cm LAV(MOD-sp2): 98.8 ml EDV(MOD-sp4): 92.8 ml LAV(MOD-sp4): 37.9 ml EDV(sp4-el): 92.4 ml LVAs ap4: 17.6 cm2 LVLs ap4: 6.8 cm ESV(MOD-sp4): 39.4 ml ESV(sp4-el): 38.8 ml EF(MOD-sp4): 57.6 % EF(sp4-el): 58.0 % SV(sp4-el): 53.5 ml LA A4 area: 15.9 cm2 LA dimension(2D): 3.3 cm RA A4 area: 27.3 cm2 Doppler Measurements & Calculations MV E max french: 73.4 cm/sec Ao V2 max: 121.9 cm/sec AI max french: 436.3 cm/sec Ao max P.0 mmHg AI max P.2 mmHg Ao V2 mean: 91.5 cm/sec Ao mean P.6 mmHg AI dec slope: 215.8 cm/sec2 Ao V2 VTI: 27.0 cm AI P1/2t: 592.3 msec LV V1 max: 77.8 cm/sec PA V2 max: 64.8 cm/sec TR max french: 251.7 cm/sec LV V1 max P.4 mmHg TR max P.3 mmHg ECHO/Echo Complete Interpretation Summary Left ventricular systolic function is normal. The estimated ejection fraction is 55 %. The left atrium is mildly enlarged. The right atrium is mildly enlarged. There is mild mitral annular calcification. Mild focal mitral valve calcification of the anterior leaflet. The mitral papillary muscle appears thickened and/or calcified. Mild-Moderate (1-2+) mitral valve insufficiency. Trivial tricuspid valve insufficiency. Mild diffuse aortic valve thickening. Mild focal aortic valve calcification. Moderate (2+) aortic valve insufficiency. Moderately dilated aortic root. Diastolic function is indeterminate. Ordering Physician: Van Buitrago Referring Physician: Tani Gomez Performed By: Gail Maier, RDCS, RVT
== END | disposition home or self-care (01) ==
LOC: CVS 12:45
PROVIDERS: PCP Internal Medicine; Referring Provider Internal Medicine Cardiovascular Disease; Visit Provider Internal Medicine Cardiovascular Disease
DX: I71.2 Thoracic aortic aneurysm, without rupture (principal); I48.19 Other persistent atrial fibrillation; I34.0 Nonrheumatic mitral (valve) insufficiency; I35.1 Nonrheumatic aortic (valve) insufficiency; I10 Essential (primary) hypertension; E78.5 Hyperlipidemia, unspecified; Z86.73 Personal history of transient ischemic attack (TIA), and cerebral infarction without residual deficits
CPT/HCPCS: 93306

== ENCOUNTER → 2023-01-18 | Outpatient (CLI) | payer MEDICARE, OTHER, SELFPAY ==
--- NOTE | 2023-01-18 12:37 | ECHOD_ITS ---
Reason For Study: EVALUATE AI AND ROOT Procedure This was a 2D Doppler, Color Flow transthoracic echocardiogram. Exam performed in department. Left Ventricle Normal LV size. Mild concentric left ventricular hypertrophy. Mild to moderate global left ventricular systolic dysfunction. The left ventricular ejection fraction is 40 %. Unable to assess diastolic dysfunction due to arrhythmia. Right Ventricle Normal right ventricle. Atria The left atrium is moderately enlarged. The right atrium is mildly enlarged. Mitral Valve Moderate diffuse mitral valve thickening. Moderate (2+) eccentric mitral valve insufficiency. Tricuspid Valve Mild tricuspid valve insufficiency. Right ventricular systolic pressure estimated to be 35 mmHg. Aortic Valve Trisinus/trileaflet aortic valve. Moderate diffuse aortic valve thickening. Moderate (2+) aortic valve insufficiency. Pulmonic Valve The pulmonic valve is not well visualized. Great Vessels Moderately dilated aortic root. Pericardium/Pleural No pericardial effusion. MMode/2D Measurements & Calculations LVIDd: 4.9 cm IVSd: 1.1 cm LVOT diam: 2.1 cm LVIDs: 3.8 cm LVPWd: 1.3 cm LVOT area: 3.5 cm2 RVDd: 4.0 cm FS: 23.2 % Ao root diam: 4.3 cm LAV(MOD-bp): 76.8 ml LVAd ap4: 27.5 cm2 LAV(MOD-bp) Indexed: 40.5 ml/m2 LVLd ap4: 7.9 cm LAV(MOD-sp2): 84.8 ml EDV(MOD-sp4): 79.4 ml LAV(MOD-sp4): 58.2 ml EDV(sp4-el): 81.8 ml LVAs ap4: 21.3 cm2 LVLs ap4: 7.8 cm ESV(MOD-sp4): 49.9 ml ESV(sp4-el): 49.3 ml EF(MOD-sp4): 37.2 % EF(sp4-el): 39.6 % SV(MOD-sp4): 29.5 ml SV(sp4-el): 32.4 ml LA A4 area: 21.6 cm2 LA dimension(2D): 3.5 cm RA A4 area: 24.4 cm2 TAPSE: 2.5 cm Doppler Measurements & Calculations MV E max tejinder: 74.9 cm/sec Lat Peak E' Tejinder: 15.3 cm/sec Med Peak E' Tejinder: 10.0 cm/sec E/E' lat: 4.9 E/E' med: 7.5 MV V2 max: 78.1 cm/sec Ao V2 max: 121.5 cm/sec AI max tejinder: 485.8 cm/sec MV max P.5 mmHg Ao max P.9 mmHg AI max P.5 mmHg MV V2 mean: 50.1 cm/sec Ao V2 mean: 83.8 cm/sec MV mean P.1 mmHg Ao mean P.2 mmHg AI dec slope: 261.9 cm/sec2 MV V2 VTI: 16.9 cm Ao V2 VTI: 28.5 cm AI P1/2t: 543.2 msec MR max tejinder: 569.8 cm/sec PA V2 max: 63.7 cm/sec TR max tejinder: 253.2 cm/sec MR max P.9 mmHg PA V2 mean: 40.1 cm/sec TR max P.7 mmHg MR mean tejinder: 439.2 cm/sec MR mean P.0 mmHg MR VTI: 217.6 cm ECHO/Echo Complete Interpretation Summary Mild concentric left ventricular hypertrophy. The left ventricular ejection fraction is 40 %. The left atrium is moderately enlarged. The right atrium is mildly enlarged. Moderate (2+) eccentric mitral valve insufficiency. Mild tricuspid valve insufficiency. Moderate (2+) aortic valve insufficiency. Moderately dilated aortic root. Consider CT chest for further evaluation. Ordering Physician: Luan Maier Referring Physician: Luan Maier Performed By: Michelle Kwok RCS
== END | disposition home or self-care (01) ==
PROVIDERS: PCP Internal Medicine; Referring Provider Nurse Practitioner Family; Visit Provider Nurse Practitioner Family
DX: I35.1 Nonrheumatic aortic (valve) insufficiency (principal); Z86.73 Personal history of transient ischemic attack (TIA), and cerebral infarction without residual deficits; I34.0 Nonrheumatic mitral (valve) insufficiency
CPT/HCPCS: 93306

== ENCOUNTER → 2023-02-15 | Outpatient (CLI) | payer MEDICARE, OTHER, SELFPAY ==
--- NOTE | 2023-02-15 13:47 | STRESSREP_ITS ---
Stress Test Report Pharmacologic myocardial perfusion stress test. 87-year-old man with a history of atrial fibrillation for preop cardiac evaluation Resting EKG demonstrates atrial fibrillation with a rate of 64 bpm. Resting blood pressure is 132/68 mmHg. 0.4 mg of regadenoson was infused per usual protocol followed by rapid intravenous saline flush injection. Continuous EKG monitoring was performed. The maximum heart rate was 88 bpm which was 65% of max impacted heart rate the maximum workload was 1 metabolic equivalent. At rest there were no ST or T wave changes noted to suggest ischemia and at peak infusion nonspecific ST changes were noted which did not meet the criteria for ischemia. No clinical angina is noted. The final blood pressure was 138/70 mmHg. Myocardial perfusion protocol. 11.5 mCi of technetium 99m sestamibi was injected at rest. 0.4 mg of regadenoson was infused per usual protocol. At peak infusion 34.2 mCi of techne tium 99m sestamibi was injected stress images were obtained stress and rest images were reconstructed and compared in the short axis vertical long and horizontal long axis. Gated images were also obtained. Perfusion SPECT analysis: Review of the stress images demonstrate normal uptake of tracer noted in all areas of the myocardium. The resting images similar demonstrated normal uptake of tracer noted in all areas of the myocardium. No areas of reversibility are noted to suggest ischemia and no previous infarct is noted. Gated SPECT analysis: The gated ejection fraction is 65%. Conclusion: Normal pharmacologic myocardial perfusion stress test. Preserved ejection fraction.
== END | disposition home or self-care (01) ==
LOC: CVS 06:24
PROVIDERS: PCP Internal Medicine; Referring Provider Nurse Practitioner Family; Visit Provider Nurse Practitioner Family
DX: Z01.810 Encounter for preprocedural cardiovascular examination (principal); I42.9 Cardiomyopathy, unspecified; I71.20 Thoracic aortic aneurysm, without rupture, unspecified; I48.19 Other persistent atrial fibrillation; R93.1 Abnormal findings on diagnostic imaging of heart and coronary circulation; I34.0 Nonrheumatic mitral (valve) insufficiency; I35.1 Nonrheumatic aortic (valve) insufficiency; I10 Essential (primary) hypertension; Z86.73 Personal history of transient ischemic attack (TIA), and cerebral infarction without residual deficits; Z79.01 Long term (current) use of anticoagulants; E78.5 Hyperlipidemia, unspecified
CPT/HCPCS: 78452; 93017; A9500; A4216; J2785

== ENCOUNTER → 2023-03-04 | Outpatient (CLI) | payer MEDICARE, OTHER, SELFPAY ==
--- NOTE | 2023-03-04 13:04 | CT_ITS ---
STUDY: CTA CHEST REASON FOR EXAM: Male, 87 years old. Thoracic Aortic aneurysm TECHNIQUE: The examination was performed with the intravenous administration of IV 100mL Isovue-370. Post-processing of the angiographic images was performed, with multiplanar reformation and 3D reconstruction. Individualized dose optimization techniques were used for this CT. COMPARISON: None. FINDINGS: Normal enhancement of the main pulmonary artery and right and left pulmonary arteries. Normal enhancement of the bilateral peripheral pulmonary arteries. There is no demonstrated pulmonary embolism. Diffuse atherosclerotic disease throughout the aorta. The ascending thoracic aorta measures approximately 4.7 x 4.6 cm consistent with mild aneurysmal dilatation. The aortic arch measures approximately 3.2 cm. The descending thoracic aorta measures approximately 2.8 x 2.9 cm in maximum dimension. There is no demonstrated aortic dissection. Normal heart and pericardium. Mild coronary artery calcifications. Normal mediastinum. Normal hilar regions. Normal visualized trachea and bronchi. The lungs are well expanded. Tiny left lower lobe subpleural calcified granuloma measuring 3.5 mm. Scattered bilateral lower lobe atelectasis, left more so compared to the right. Remainder of the lung parenchyma is normal. Normal pleura. Normal chest wall structures. There is a hypoattenuated nodule within the right thyroid lobe measuring approximately 1.3 cm. There are degenerative changes of thoracic spine. Normal visualized upper abdomen. CT/CTA Chest W/WO Contrast IMPRESSION: There is mild aneurysmal dilatation of the ascending aorta measuring up to 4.7 x 4.6 cm. The descending thoracic aorta maintains normal caliber. Otherwise negative CTA chest examination, without a demonstrated pulmonary embolism or arterial dissection. Mild bilateral lower lobe atelectasis, otherwise no acute cardiopulmonary disease. Hypoattenuated nodule within the right thyroid lobe measuring 1.3 cm which may be further evaluated with ultrasound of the thyroid gland in nonacute setting. Electronically Signed: Yazmin Ramos MD at 21:29 EDT ,
[2023-03-04 13:33] LABS: CREATININE FINGERSTICK 1.1 mg/dL (0.70-1.30); EGFR FINGERSTICK > 60.0000 mL/min (>60)
== END | disposition home or self-care (01) ==
LOC: CT 12:59
PROVIDERS: PCP Internal Medicine; Referring Provider Nurse Practitioner Family; Visit Provider Nurse Practitioner Family
DX: I48.19 Other persistent atrial fibrillation (principal); I71.20 Thoracic aortic aneurysm, without rupture, unspecified; R93.1 Abnormal findings on diagnostic imaging of heart and coronary circulation; I34.0 Nonrheumatic mitral (valve) insufficiency; I35.1 Nonrheumatic aortic (valve) insufficiency; I10 Essential (primary) hypertension; E78.5 Hyperlipidemia, unspecified
CPT/HCPCS: 71275; 93225; 93226; Q9967

== ENCOUNTER → 2024-01-03 | Outpatient (CLI) | payer MEDICARE, OTHER, SELFPAY ==
--- NOTE | 2024-01-03 13:12 | CT_ITS ---
STUDY: CTA CHEST REASON FOR EXAM: Male, 88 years old. Evaluate thoracic aortic aneurysm RADIATION DOSAGE (If Supplied By Facility): CTDIvol = ( 9.30 ) mGy, DLP = ( 314.57 ) mGycm TECHNIQUE: The examination was performed with the intravenous administration of IV 100mL Isovue-370. Post-processing of the angiographic images was performed, with multiplanar reformation and 3D reconstruction. The protocol utilizes one or more of the following dose reduction techniques: automated exposure control, adjustment of mA and/or kV according to patient size,and/or use of iterative reconstruction technique. COMPARISON: Prior study dated: 03/04/2023 FINDINGS: Normal enhancement of the main pulmonary artery and right and left pulmonary arteries. Normal enhancement of the bilateral peripheral pulmonary arteries. There is no demonstrated pulmonary embolism. Ascending thoracic aortic aneurysm measuring up to 4.6 cm in AP diameter unchanged since prior examination. Atherosclerotic calcifications and mild tortuosity of the distal descending thoracic aorta. There is no demonstrated aortic dissection. Normal heart and pericardium. There are calcifications of the coronary arteries. Stable 2 cm right lobe thyroid nodule. Small nodule in the left lobe. No evidence of mediastinal adenopathy. Normal hilar regions. Normal visualized trachea and bronchi. The lungs are well expanded. Scattered atelectatic changes. No focal consolidation is seen. Small bulla in the left lower lobe. Small left lobe calcified granuloma. There are no pleural effusions. Normal chest wall structures. There are degenerative changes of thoracic spine. No demonstrated acute changes in the visualized upper abdomen. CT/CTA Chest W/WO Contrast IMPRESSION: 1. Ascending thoracic aortic aneurysm stable since previous exam. 2. Atelectatic changes or scarring. No focal consolidation is seen. 3. Right lobe thyroid nodule for which correlation with thyroid ultrasound is recommended if it has not already been performed. Electronically Signed: Moose Gomez MD at 13:49 EDT ,
[2024-01-03 13:45] LABS: CREATININE FINGERSTICK < 1.0 mg/dL (0.70-1.30); EGFR FINGERSTICK > 60.0000 mL/min (>60)
== END | disposition home or self-care (01) ==
PROVIDERS: PCP Internal Medicine; Referring Provider Internal Medicine Cardiovascular Disease; Visit Provider Internal Medicine Cardiovascular Disease
DX: I71.20 Thoracic aortic aneurysm, without rupture, unspecified (principal); R07.9 Chest pain, unspecified
CPT/HCPCS: 71275; Q9967; A4216

== ENCOUNTER → 2025-01-19 | Outpatient (CLI) | payer MEDICARE, OTHER, SELFPAY ==
--- NOTE | 2025-01-19 12:41 | ECHOD_ITS ---
Reason For Study Reason For Study: MV INSUFFICIENCY Procedure This was a 2D Doppler, Color Flow transthoracic echocardiogram. Exam performed in department. Left Ventricle Normal LV size. The left ventricular ejection fraction is 55 %. No regional wall motion abnormalities noted. Right Ventricle Normal RV size. Normal systolic function. Atria The left atrium is mildly enlarged. The right atrium is moderately enlarged. Mitral Valve There is mild mitral annular calcification. Mild-Moderate (1-2+) eccentric mitral valve insufficiency. Tricuspid Valve Normal tricuspid valve. Mild (1+) tricuspid valve insufficiency. Pulmonary artery systolic pressure is 32 mmHg. Aortic Valve Trisinus/trileaflet aortic valve. Mild focal aortic valve calcification. Mild (1+) aortic valve insufficiency. Pulmonic Valve Normal pulmonic valve. Great Vessels Mild to moderately dilated aortic root. The pulmonary artery is normal size. Inferior vena cava collapse with respiration. Pericardium/Pleural No pericardial effusion. MMode/2D Measurements & Calculations LVIDd: 4.9 cm IVSd: 1.0 cm Ao root diam: 4.4 cm LVIDs: 3.7 cm LVPWd: 1.3 cm FS: 24.6 % LAV(MOD-bp): 90.2 ml LVAd ap4: 23.2 cm2 LVAd ap2: 28.0 cm2 LAV(MOD-bp) Indexed: 46.1 ml/m2 LVLd ap4: 6.8 cm LVLd ap2: 8.5 cm LAV(MOD-sp2): 76.3 ml EDV(MOD-sp4): 66.5 ml EDV(MOD-sp2): 80.1 ml LAV(MOD-sp4): 89.3 ml EDV(sp4-el): 67.9 ml EDV(sp2-el): 78.5 ml LVAs ap4: 14.4 cm2 LVAs ap2: 16.4 cm2 LVLs ap4: 6.0 cm LVLs ap2: 6.9 cm ESV(MOD-sp4): 30.5 ml ESV(MOD-sp2): 36.3 ml ESV(sp4-el): 29.5 ml ESV(sp2-el): 33.2 ml EF(MOD-sp4): 54.2 % EF(MOD-sp2): 54.7 % EF(sp4-el): 56.6 % SV(MOD-sp4): 36.0 ml SV(MOD-sp2): 43.9 ml SV(sp4-el): 38.4 ml SI(MOD-sp4): 18.4 ml/m2 SI(MOD-sp2): 22.4 ml/m2 LA A4 area: 25.0 cm2 LA dimension(2D): 4.5 cm RA A4 area: 23.1 cm2 TAPSE: 2.5 cm Doppler Measurements & Calculations MV E max tejinder: 79.7 cm/sec Lat Peak E' Tejinder: 14.1 cm/sec Med Peak E' Tejinder: 9.3 cm/sec E/E' lat: 5.7 E/E' med: 8.6 MV P1/2t max tejinder: 98.4 cm/sec Ao V2 max: 137.6 cm/sec AI max tejinder: 368.1 cm/sec MV P1/2t: 55.2 msec Ao max P.6 mmHg AI max P.2 mmHg Ao V2 mean: 90.6 cm/sec MV dec slope: 521.8 cm/sec2 Ao mean P.8 mmHg AI dec slope: 183.0 cm/sec2 MVA(P1/2t): 4.0 cm2 Ao V2 VTI: 25.9 cm AI P1/2t: 589.2 msec AV (velocity ratio): 0.68 LV V1 max: 73.8 cm/sec PA V2 max: 85.5 cm/sec TR max tejinder: 265.0 cm/sec LV V1 max P.2 mmHg PA V2 mean: 58.1 cm/sec TR max P.1 mmHg LV V1 mean P.2 mmHg LV V1 mean: 51.4 cm/sec LV V1 VTI: 17.6 cm ECHO/Echo Complete Interpretation Summary Normal LV size. The left ventricular ejection fraction is 55 %. Mild to moderately dilated aortic root. Mild (1+) aortic valve insufficiency. The left atrium is mildly enlarged. The right atrium is moderately enlarged. Mild-Moderate (1-2+) eccentric mitral valve insufficiency. Ordering Physician: Freeman Galeas Referring Physician: Denice Guillen Performed By: Doris Rosenthal, BRENDA, RVT
--- NOTE | 2025-01-19 12:41 | CT_ITS ---
PROCEDURE: CTA CHEST W/WO CONTRAST 01/19/2025 REASON FOR EXAM: THORACIC AORTIC ANEURYSM WITHOUT RUPTURE TECHNIQUE: Procedure Code: [id number] Modality: CT Procedure: CTA CHEST W/WO CONTRAST Multiplanar Sagittal and Coronal images were obtained. Three-dimensional reconstructions CONTRAST: Isovue 370 VOLUME: 100 mL One or more dose reduction techniques were used (e.g., Automated exposure control, adjustment of the mA and/or kV according to patient size, use of iterative reconstruction technique). RADIATION DOSE SUMMARY: CTDlvol: 31 mGy DLP: 675 mGycm COMPARISON: 01/03/2024 # of known CTs in the past 12 months: 0 # of known Cardiac Nuclear Medicine Studies in the past 12 months: 0 FINDINGS: Inspection of the lung parenchyma demonstrates no hu areas of consolidation. Calcified granuloma superior segment left lower lobe. Tiny subpleural nodule right lower lobe. This was present previously and is stable. There is no consolidation. No significant pleural fluid. There is dilatation of the aortic root without dissection. This measures 4.8 by 4.9 cm. On the prior study, this measured 4.5 x 4.6 cm. Slight enlargement. Moderate coronary artery calcification. Ascending aorta in short axis measures 3.8 cm which is stable compared to the prior study. The measurement could be affected slightly by the phase of the cardiac cycle. There are no visible pulmonary emboli. Descending thoracic aorta normal. Upper abdominal aorta normal. No mediastinal mass. CT/CTA Chest W/WO Contrast IMPRESSION: Slight enlargement of ascending thoracic aorta. Stable pulmonary nodule [facility]
== END | disposition home or self-care (01) ==
LOC: CT 12:41
PROVIDERS: PCP Student in an Organized Health Care Education/Training Program; Referring Provider Internal Medicine Cardiovascular Disease; Visit Provider Internal Medicine Cardiovascular Disease
DX: I34.0 Nonrheumatic mitral (valve) insufficiency (principal); I71.20 Thoracic aortic aneurysm, without rupture, unspecified
CPT/HCPCS: 71275; 93306; Q9967